=== PATIENT | female | born 1985 | race Caucasian/White ===

== ENCOUNTER 2017-09-19 06:14 | Day surgery (SDC) | payer OTHER ==
[2017-09-19] MEDS ORDERED: BACITRACIN 50000 UNITS/VIAL ONE (07:33)
[2017-09-19] MEDS ORDERED: HYDROMORPHONE INJ 2 MG/ML DISP.SYRIN ONE (08:11)
[2017-09-19] MEDS ORDERED: HYDROMORPHONE 1 MG/1 ML DISP.SYRIN ONE ×2 (09:09→09:42)
[2017-09-19] MEDS ORDERED: FENTANYL PF 100MCG/2ML AMPUL ONE (09:24)
[2017-09-19] MEDS ORDERED: METOCLOPRAMIDE HCL 10 MG/2 ML VIAL ONE (10:06)
== END 2017-09-19 10:40 | disposition home or self-care (01) ==
LOC: DS 06:14
PROVIDERS: ATTEND Specialist
DX: S52.552A Other extraarticular fracture of lower end of left radius, initial encounter for closed fracture (principal); X58.XXXA Exposure to other specified factors, initial encounter; Y93.9 Activity, unspecified; Y92.89 Other specified places as the place of occurrence of the external cause; Y99.9 Unspecified external cause status; E66.9 Obesity, unspecified; Z87.891 Personal history of nicotine dependence; Z90.49 Acquired absence of other specified parts of digestive tract; Z88.8 Allergy status to other drugs, medicaments and biological substances
CPT/HCPCS: 36415; 84703-TC; A4565; A4606; A6253; A6402; J0690; J1100; J1170; J1885; J2405; J2704; J2765; J3010; J3490